=== PATIENT | female | born 1940 | race Caucasian/White ===

== ENCOUNTER → 2019-02-23 08:49 | Outpatient (BNVA) | payer MEDICARE, BC, SELFPAY | PROVIDERS: PCP Nurse Practitioner Family; Referring Provider Family Medicine; Visit Provider Orthopaedic Surgery | DX: M25.512 Pain in left shoulder (principal) | CPT/HCPCS: 20610; 99212; 99213; J1040 ==

== ENCOUNTER 2019-04-06 09:57 | Outpatient (CLI) | payer MEDICARE, BC, SELFPAY ==
--- NOTE | 2019-04-06 09:52 | DI.RAD_ITS ---
SYMPTOMS/DIAGNOSIS: PAIN RIGHT KNEE: AP and lateral projections of the right knee. The patient is status post TKA. The prosthesis in good position, surrounding bone intact with no appreciable interval change when compared with the prior study of 10/20/17.
== END 2019-04-06 10:17 ==
PROVIDERS: PCP Nurse Practitioner Family; Referring Provider Nurse Practitioner Family; Visit Provider Orthopaedic Surgery
DX: M25.561 Pain in right knee (principal); Z96.651 Presence of right artificial knee joint; M25.512 Pain in left shoulder
CPT/HCPCS: 99211; 99213; 73560

== ENCOUNTER → 2019-05-18 08:54 | Outpatient (BNVA) | payer MEDICARE, BC, SELFPAY | PROVIDERS: Referring Provider Nurse Practitioner Family; Visit Provider Orthopaedic Surgery | DX: M25.511 Pain in right shoulder (principal); M25.561 Pain in right knee; M70.51 Other bursitis of knee, right knee | CPT/HCPCS: 99213 ==

== ENCOUNTER 2020-04-02 12:29 | Outpatient (CLI) | payer MEDICARE, BC, SELFPAY ==
--- NOTE | 2020-04-02 12:00 | DI.RAD_ITS ---
EXAM: XR KNEE RT 2V AP,LAT CLINICAL HISTORY: pain TECHNIQUE: 2D digital imaging was performed. COMPARISON: CR XR knee RT 2V AP,lat from 04/06/2019 FINDINGS: There has been no change in the alignment of the a total knee prosthesis or surrounding bone. IMPRESSION: Stable appearance of the right knee.
== END 2020-04-02 12:49 ==
PROVIDERS: Visit Provider Orthopaedic Surgery
DX: M25.561 Pain in right knee (principal); Z96.651 Presence of right artificial knee joint
CPT/HCPCS: 20610; 99214; 73560; J1040

== ENCOUNTER → 2020-09-25 10:48 | Outpatient (BNVA) | payer MEDICARE, BC, SELFPAY | PROVIDERS: PCP Nurse Practitioner Family; Visit Provider Orthopaedic Surgery | DX: T84.84XD Pain due to internal orthopedic prosthetic devices, implants and grafts, subsequent encounter (principal); Z96.651 Presence of right artificial knee joint | CPT/HCPCS: 99213 ==

== ENCOUNTER 2020-10-04 02:22 | Outpatient (CLI) | payer MEDICARE, BC, SELFPAY ==
--- NOTE | 2020-10-04 07:30 | DI.NM_ITS ---
EXAM: NM BONE SCAN 3 PHASE CLINICAL HISTORY: Painful R TKA, T84XA, Z96.651. COMPARISON: CR RIGHT KNEE 3 VIEWS from 10/20/2017 CR XR KNEE RT 2V AP,LAT from 04/02/2020 EXAMINATION: 25.0 millicuries of technetium 99 labeled methylene diphosphonate was injected of intra venously with 3 phase imaging of the knee. Flow images and immediate images show moderately increase d uptake in the region of the right knee. Delayed images show significantly increased uptake at the proximal tibia associated with the tibial component the patient's total knee joint replacement. Find ings are more intense than typically seen post TKR, the findings may represent loosening in the appro priate clinical setting. Infectious process not excluded on the basis of this examination. Note is also made of increased uptake associated with the right hip, this may be on a degenerative ba sis, however other etiologies are not excluded and correlation with radiographs of the right hip are suggested. Note is also made mildly increased uptake at multiple sites near the thoracolumbar junction consisten t with the patient's known scoliosis. FINDINGS: Slightly greater than expected increased uptake associated with the tibial component of the right tot al knee joint replacement, findings could represent loosening or stress reaction, infection not exclu ded on the basis of this examination. Mildly increased uptake right hip, radiographs requested for correlation for suspected degenerative c hanges. IMPRESSION:
== END 2020-10-04 02:42 ==
PROVIDERS: PCP Nurse Practitioner Family; Visit Provider Physician Assistant
DX: T84.84XA Pain due to internal orthopedic prosthetic devices, implants and grafts, initial encounter (principal); Z96.651 Presence of right artificial knee joint
CPT/HCPCS: 78315

== ENCOUNTER → 2020-10-09 11:23 | Outpatient (BNVA) | payer MEDICARE, BC, SELFPAY | PROVIDERS: PCP Nurse Practitioner Family; Referring Provider Nurse Practitioner Family; Visit Provider Orthopaedic Surgery | DX: T84.84XD Pain due to internal orthopedic prosthetic devices, implants and grafts, subsequent encounter (principal); Z96.651 Presence of right artificial knee joint | CPT/HCPCS: 20610; 99213 ==

== ENCOUNTER → 2020-10-24 10:27 | Outpatient (BNVA) | payer MEDICARE, BC, SELFPAY | PROVIDERS: PCP Nurse Practitioner Family; Referring Provider Nurse Practitioner Family; Visit Provider Student in an Organized Health Care Education/Training Program | DX: T84.84XD Pain due to internal orthopedic prosthetic devices, implants and grafts, subsequent encounter (principal); T84.032D Mechanical loosening of internal right knee prosthetic joint, subsequent encounter; Z96.651 Presence of right artificial knee joint | CPT/HCPCS: 99215 ==

== ENCOUNTER 2020-11-04 03:37 | Outpatient (CLI) | payer MEDICARE, BC, SELFPAY ==
[2020-11-04 10:53] LABS: HCT 37.2 % (36.0-46.0); HGB 11.7 g/dL (11.2-15.7); MCHC 31.5 % (32.0-36.0); MCV 98.7 fL (80-95); MPV 10.6 fL (8.0-11.0); Platelet Count 255 10^3/uL (130-400); RBC 3.77 10^6/uL (3.93-5.22); RDW 11.9 % (11.7-14.6); RDW-SD 43.4 fL; WBC 4.64 10^3/uL (4.4-10.8)
[2020-11-04 11:27] LABS: Anion Gap 7.5 mmol/L (3-11); BUN 25 mg/dL (7-18); C-Reactive Protein 0.07 mg/dL (0.0-0.3); CO2 29.5 mmol/L (21.0-32.0); CREATININE 1.13 mg/dL (0.55-1.02); Calcium 9.2 mg/dL (8.5-10.1); Chloride 105 mmol/L (98-107); Estimated GFR 46.33 (mL/min/1.73m2); Glucose 97 mg/dL (74-106); Potassium 3.6 mmol/L (3.5-5.1); Sodium 142 mmol/L (136-145)
[2020-11-04 11:49] LABS: ESR 14 mm/hr (0-30)
[2020-11-05 16:50] LABS: COVID-19 RT-PCR UVMMC Result Negative (Negative)
== END 2020-11-04 03:57 ==
PROVIDERS: PCP Nurse Practitioner Family; Visit Provider Student in an Organized Health Care Education/Training Program
DX: T84.84XA Pain due to internal orthopedic prosthetic devices, implants and grafts, initial encounter (principal); Z96.651 Presence of right artificial knee joint; Z11.59 Encounter for screening for other viral diseases; Z01.818 Encounter for other preprocedural examination; Z01.812 Encounter for preprocedural laboratory examination
CPT/HCPCS: 36415; 80048; 85027; 85652; U0003; 86140

== ENCOUNTER → 2020-11-06 07:59 | Outpatient (BNVA) | payer MEDICARE, BC, SELFPAY | PROVIDERS: PCP Nurse Practitioner Family; Referring Provider Nurse Practitioner Family; Visit Provider Student in an Organized Health Care Education/Training Program | DX: R69 Illness, unspecified (principal) ==

== ENCOUNTER 2020-11-06 08:09 | Inpatient (IN) | payer MEDICARE, BC, SELFPAY ==
[2020-11-06] VITALS (13 sets, daily range): BP systolic 114–145; BP diastolic 60–90; PULSE 41–98; RESP 15–21; TEMP 35.5–36.4; O2SAT 95–100
[2020-11-06] MEDS: Lactated Ringers 1,000 ML 30 ML IV ×2 (09:13→23:07)
[2020-11-06 09:18] LABS: INR 1.4 (0.9-1.1); Prothrombin Time 13.8 sec (9.3-11.0)
--- NOTE | 2020-11-06 09:25 | W.PM.DS.N ---
Documented by User: Celia Zuniga 11/06/20 09:42 DS: Diagnosis Discharge Diagnosis (1) Painful total knee replacement, right: Status: Acute (2) Loosening of prosthesis of right total knee replacement: Status: Acute Discharge Plan Disposition Patient Disposition: HOME Condition: Good Discharge Details Reason For Visit: Loosening of prosthesis of right TKA Admit Date/Time: 11/06/20 08:09 Admit Provider: David Dawn Attending Provider: David Dawn Primary Care Provider: Florence Quan Hospital Course Hospital Course: Patient was admitted to the medical/surgical floor following the procedure. The surgery was tolerated well without any notable medical, surgical, or anesthetic complications. Mobilization began post-operatively. They were voiding spontaneously. Vitals were stable. Physical therapy worked with the patient and was cleared for discharge home with home health services. No acute medical issues. Pain was controlled on oral regimen. Home Meds and New Rx's Prescriptions: New celecoxib [Celebrex] 200 mg capsule 200 mg PO BID Qty: 30 RF: 0 acetaminophen 500 mg tablet 500 mg PO Q6H PRN (Reason: pain) Qty: 60 RF: 2 docusate sodium [Colace] 100 mg capsule 100 mg PO BID Qty: 30 RF: 0 oxycodone 5 mg tablet 5 mg PO Q4H PRN (Reason: severe post-operative pain) Qty: 18 RF: 0 gabapentin 300 mg capsule 300 mg PO QHS Qty: 14 RF: 0 Continued furosemide 40 mg tablet 40 mg PO DAILY RF: 0 atorvastatin [Lipitor] 20 MG tablet 10 mg PO HS Qty: 1 RF: 0 meclizine 25 MG tablet 25 mg PO BID Qty: 1 RF: 0 omeprazole magnesium [Prilosec OTC] 20 MG tablet,delayed release (DR/EC) 20 mg PO BID Qty: 1 RF: 0 CENTRUM SILVER TABLET 1 EACH tablet 1 ea PO DAILY Qty: 1 RF: 0 CITRACAL + D CAPLET 1 EACH tablet 1 ea PO HS Qty: 1 RF: 0 TRIAMCINOLONE ACETONIDE 100 GM cream 100 gm Miscellaneous DAILY PRNQty: 1 RF: 0 diphenhydramine HCl [Benadryl Allergy] 25 MG tablet 25 mg PO PRN PRNRF: 0 warfarin 5 MG tablet 5 mg PO HS RF: 0 oxybutynin chloride 5 MG tablet extended release 24hr 1 tab PO DAILY RF: 0 Excedrin Migraine 1 EACH tablet 1 ea PO PRN PRN (Reason: Pain) RF: 0 estradiol [Vagifem] 10 MCG tablet 10 mcg VG .WEDNESDAY AND WEDNESDAY RF: 0 penicillin V potassium 250 mg tablet 250 mg PO DAILY RF: 0 Discontinued hydrocodone-acetaminophen 7.5-325 mg tablet 1 tab PO Q6H PRNRF: 0 Discharge Instructions Additional Instructions: Total Knee Revision Discharge Instructions Activity: The most important activity is to walk. You should try to take short walks a few times a day. It is important that when resting you work on keeping the knee straight. Avoid putting a pillow behind the knee as this will encourage flexion. Work on range of motion exercises as provided by Physical Therapy. - Start outpatient physical therapy within 2 weeks. - You should wear the MAYLIN hose on both legs for 2 weeks. Dressing: Keep the surgical dressing in place for at least one week. After the first week it may be removed and replace with light gauze and tape or nothing. It may get wet after 3 days but avoid soaking the dressing. If it gets wet, just lightly pat dry. Medications: - You should take Tylenol and anti-inflammatory Celebrex as your primary pain control medications. If the Celebrex is too expensive or not covered, please call the office for another alternative (Advil/Ibuprofen or Naproxen/Aleve) - You have been prescribed a stronger pain medication Oxycodone for breakthrough pain, take as needed as prescribed. - You should continue your stomach acid reduction agent Omeprazole to help reduce stomach acid and reflux. - You will continuing taking your regular dose of warfarin for DVT prevention. Your INR will be checked hy home health services - If you have constipation you should take Colace (which was prescribed) or Miralax (which you may purchase [id number]). It takes most people 3-4 days to have a bowel movement. Follow-up: 2 weeks If you have any acute concerns or questions, please do not hesitate to contact the office at [phone]. You may contact Dr. Dawn with any questions after hours through the hospital at [phone] or on his cell phone at [phone]. 1. Encounter Date and Reason I certify that Carla LAL was seen by David Dawn MD on 11/07/20 and that I had a akjh-ye-aorw encounter with this patient that meets the physician face to face encounter requirements. 2. Clinical Findings Supporting Skilled Need and Homebound Status I certify that home health services are medically necessary, include either intermittent long term and/or physical/speech therapy, and that this patient is homebound in that absences from the home require considerable and taxing effort and are infrequent or of short duration, or are attributable to the need to receive medical care. [X] (a) Attached documentation from encounter provides clinical findings supporting skilled need and homebound status (including what assistance patient requires to leave the home). The encounter with the patient was in whole, or in part, for the following medical condition, which is the primary reason for home health care: Loosening of prosthesis of right TKA Half-Way: Physical Therapy: Radha would benefit from home health physical therapy to assist with mobilization and regaining strength and motion about the right knee. She is s/p revision of the tibial component of the right knee. She has no restrictions but should focus on range of motion of the knee with light strengthening and ambulatory training. Recommend a walker at al times for mobilization. INR checks should also be drawn twice a week, starting on Wednesday11/11/19 or sooner if possible. Speech Therapy: Homebound: Radha is unable to leave her home unassisted. She has significant weakness and gait dysfunction. 3. Certification and Authentication I certify that I composed the above information based on my clinical judgement relating to this patient's medical condition and, if applicable, clinical findings communicated to me by the NPP or inpatient physician who performed the Home Health Referral. All further orders will be obtained through Dr. Dawn Referrals: David Dawn MD [ [facility] STAFF PHYSICIAN] - Activity:: Activity as Tolerated Equipment/Supplies:: Walker Diet:: As Tolerated Discharge Orders Discharge Orders: Discharge Order (Routine); Ordered 11/07/20 Ordered By: David Dawn DS: Data Vitals/I&O Vitals and I&O: Vital Signs Temperature 36.2 C L 11/06/20 09:17 Pulse 41 L 11/06/20 09:17 Pulse Rhythm Irregular 11/06/20 09:17 Respiratory Rate 18 11/06/20 09:17 Respiratory Effort 11/06/20 08:47 Respiratory Depth Normal 11/06/20 09:17 Blood Pressure 114/61 11/06/20 09:17 Pulse Oximetry 97 11/06/20 09:17 Oxygen Delivery Method Room Air 11/06/20 09:17 Oxygen Flow Rate 0 11/06/20 09:17 Pain Level 8 11/06/20 09:17 Intake & Output 11/05/20 11/05/20 11/06/20 11:59 23:59 11:59 Weight 61.2 kg Data Completed and Pending Labs on day of discharge: Labs from last 24 hours 11/06/20 09:00 PT Pending INR Pending [facility] Medical History Arthritis Back Pain, Chronic Bradycardia Cardiac Myxoma Erythema nodosum GERD (gastroesophageal reflux disease) hypercholesterolemia Hyperlipidemia Meniere's disease Permanent atrial fibrillation Pulmonary HTN Moderate [place] [facility] [place] Renal Insufficiency Surgical History (Updated 11/06/20 @ 09:21 by Mona Anderson) History of History of esophagogastroduodenoscopy (EGD) History of hysterectomy History of left knee replacement History of right knee joint replacement Hx of appendectomy Hx of basal cell carcinoma excision Hx of bilateral cataract extraction Hx of cholecystectomy Hx of colonoscopy Hx of hammer toe correction Hx of heart surgery cardiac myxoma -40 years ago Hx of shoulder surgery Social History Smoking/Tobacco Use Status: Former Tobacco Use Smoking risk assessment performed?: Yes Drug use: Never Current gender identity: female Do you feel safe at home: Yes Do you feel safe in your relationship?: Yes Documented by User: David Dawn MD 11/07/20 14:01 Date of service: 11/07/20 Time of Service: 13:55 Discharge Plan Disposition Patient Disposition: HOME Condition: Good Discharge Details Reason For Visit: Loosening of prosthesis of right TKA Admit Date/Time: 11/06/20 08:09 Admit Provider: David Dawn Attending Provider: David Dawn Primary Care Provider: Florence Quan [place] Hospital Course Hospital Course: Patient was admitted to the medical/surgical floor following the procedure. The surgery was tolerated well without any notable medical, surgical, or anesthetic complications. Mobilization began post-operatively. They were voiding spontaneously. Vitals were stable. Physical therapy worked with the patient and was cleared for discharge home with home health services. No acute medical issues. Pain was controlled on oral regimen. Home Meds and New Rx's Prescriptions: New celecoxib [Celebrex] 200 mg capsule 200 mg PO BID Qty: 30 RF: 0 acetaminophen 500 mg tablet 500 mg PO Q6H PRN (Reason: pain) Qty: 60 RF: 2 docusate sodium [Colace] 100 mg capsule 100 mg PO BID Qty: 30 RF: 0 oxycodone 5 mg tablet 5 mg PO Q4H PRN (Reason: severe post-operative pain) Qty: 18 RF: 0 gabapentin 300 mg capsule 300 mg PO QHS Qty: 14 RF: 0 Continued furosemide 40 mg tablet 40 mg PO DAILY RF: 0 atorvastatin [Lipitor] 20 MG tablet 10 mg PO HS Qty: 1 RF: 0 meclizine 25 MG tablet 25 mg PO BID Qty: 1 RF: 0 omeprazole magnesium [Prilosec OTC] 20 MG tablet,delayed release (DR/EC) 20 mg PO BID Qty: 1 RF: 0 CENTRUM SILVER TABLET 1 EACH tablet 1 ea PO DAILY Qty: 1 RF: 0 CITRACAL + D CAPLET 1 EACH tablet 1 ea PO HS Qty: 1 RF: 0 TRIAMCINOLONE ACETONIDE 100 GM cream 100 gm Miscellaneous DAILY PRNQty: 1 RF: 0 diphenhydramine HCl [Benadryl Allergy] 25 MG tablet 25 mg PO PRN PRNRF: 0 warfarin 5 MG tablet 5 mg PO HS RF: 0 oxybutynin chloride 5 MG tablet extended release 24hr 1 tab PO DAILY RF: 0 Excedrin Migraine 1 EACH tablet 1 ea PO PRN PRN (Reason: Pain) RF: 0 estradiol [Vagifem] 10 MCG tablet 10 mcg VG .WEDNESDAY AND THURSDAY RF: 0 penicillin V potassium 250 mg tablet 250 mg PO DAILY RF: 0 Discontinued hydrocodone-acetaminophen 7.5-325 mg tablet 1 tab PO Q6H PRNRF: 0 Discharge Instructions Additional Instructions: Total Knee Revision Discharge Instructions Activity: The most important activity is to walk. You should try to take short walks a few times a day. It is important that when resting you work on keeping the knee straight. Avoid putting a pillow behind the knee as this will encourage flexion. Work on range of motion exercises as provided by Physical Therapy. - Start outpatient physical therapy within 2 weeks. - You should wear the MAYLIN hose on both legs for 2 weeks. Dressing: Keep the surgical dressing in place for at least one week. After the first week it may be removed and replace with light gauze and tape or nothing. It may get wet after 3 days but avoid soaking the dressing. If it gets wet, just lightly pat dry. Medications: - You should take Tylenol and anti-inflammatory Celebrex as your primary pain control medications. If the Celebrex is too expensive or not covered, please call the office for another alternative (Advil/Ibuprofen or Naproxen/Aleve) - You have been prescribed a stronger pain medication Oxycodone for breakthrough pain, take as needed as prescribed. - You should continue your stomach acid reduction agent Omeprazole to help reduce stomach acid and reflux. - You will continuing taking your regular dose of warfarin for DVT prevention. Your INR will be checked hy home health services - If you have constipation you should take Colace (which was prescribed) or Miralax (which you may purchase [id number]). It takes most people 3-4 days to have a bowel movement. Follow-up: 2 weeks If you have any acute concerns or questions, please do not hesitate to contact the office at [phone]. You may contact Dr. Dawn with any questions after hours through the hospital at [phone] or on his cell phone at [phone]. 1. Encounter Date and Reason I certify that Carla LAL was seen by David Dawn MD on 11/07/20 and that I had a itef-ef-uacw encounter with this patient that meets the physician face to face encounter requirements. 2. Clinical Findings Supporting Skilled Need and Homebound Status I certify that home health services are medically necessary, include either intermittent long term and/or physical/speech therapy, and that this patient is homebound in that absences from the home require considerable and taxing effort and are infrequent or of short duration, or are attributable to the need to receive medical care. [X] (a) Attached documentation from encounter provides clinical findings supporting skilled need and homebound status (including what assistance patient requires to leave the home). The encounter with the patient was in whole, or in part, for the following medical condition, which is the primary reason for home health care: Loosening of prosthesis of right TKA Half-Way: Physical Therapy: Radha would benefit from home health physical therapy to assist with mobilization and regaining strength and motion about the right knee. She is s/p revision of the tibial component of the right knee. She has no restrictions but should focus on range of motion of the knee with light strengthening and ambulatory training. Recommend a walker at al times for mobilization. INR checks should also be drawn twice a week, starting on Wednesday11/11/19 or sooner if possible. Speech Therapy: Homebound: Radha is unable to leave her home unassisted. She has significant weakness and gait dysfunction. 3. Certification and Authentication I certify that I composed the above information based on my clinical judgement relating to this patient's medical condition and, if applicable, clinical findings communicated to me by the NPP or inpatient physician who performed the Home Health Referral. All further orders will be obtained through Dr. Dawn Referrals: David Dawn MD [ [facility] STAFF PHYSICIAN] - Activity:: Activity as Tolerated Equipment/Supplies:: Walker Diet:: As Tolerated Discharge Orders Discharge Orders: Discharge Order (Routine); Ordered 11/07/20 Ordered By: David Dawn DS: Summary Status at Discharge Functional status at discharge: uses cane/walker Overall status at discharge: patient is progressing back to baseline Mental Status: mental status grossly normal Speech and Movement: speech and movement normal Mood: congruent mood Affect: normal affect Exam Psych Mental Status: mental status grossly normal Speech and Movement: speech and movement normal Mood: congruent mood Affect: normal affect [facility] Medical History Arthritis Back Pain, Chronic Bradycardia Cardiac Myxoma Erythema nodosum GERD (gastroesophageal reflux disease) hypercholesterolemia Hyperlipidemia Meniere's disease Permanent atrial fibrillation Pulmonary HTN Moderate [place] [facility] [place] Renal Insufficiency Surgical History (Updated 11/06/20 @ 09:21 by Mona Anderson) History of History of esophagogastroduodenoscopy (EGD) History of hysterectomy History of left knee replacement History of right knee joint replacement Hx of appendectomy Hx of basal cell carcinoma excision Hx of bilateral cataract extraction Hx of cholecystectomy Hx of colonoscopy Hx of hammer toe correction Hx of heart surgery cardiac myxoma -40 years ago Hx of shoulder surgery Social History Smoking/Tobacco Use Status: Former Tobacco Use Smoking risk assessment performed?: Yes Drug use: Never Current gender identity: female Do you feel safe at home: Yes Do you feel safe in your relationship?: Yes
[2020-11-06] MEDS: Acetaminophen 500 MG TAB 1000 MG PO ×2 (09:39→21:02)
[2020-11-06] MEDS: Gabapentin 300 MG CAP PO ×2 (09:42→21:19)
--- NOTE | 2020-11-06 10:37 | ANES_ITS ---
Date of service: 11/06/20 Time of Service: 10:27 Anesthesia Note Report Anesthesia Note: Regional Anesthesia note: Performed by Olaf Flores CRNA Block note for femoral nerve block in the adductor canal. Patient brought to PACU bay 3 and standard physiological monitors applied. Patient was stable to her baseline of bradycardic atrial fibrillation, blood pressure 114/73, SPO2 100% on RA with RR of 16. Timeout performed at 0927 with Linda Luna RN. Patient name, , sidedness, marked status, and procedures verified. Patient positioned with right leg, froglegged out and site exposed. Patient awake throughout procedure not sedation used. CHG applied to clean site. Sterile gloves, US cover applied. All members of team capped and masked. Structures visualized: Nerve, artery, vein, muscle, and femur. Patient does report discomfort from vericose veins running on the medial thigh: these were avoided. US image obtained, 15 ml of 0.25% plain bupivacaine deposited around nerve. Patient reported pressure and some pain, at site, on second reposition for second 5 ml reported pain down leg, needle repositioned prior to injection with disappearance of the reported pain, injection continued. 3.5 cm Pajunk needle under ultrasound guidance throughout. Images saved and sent to seismic observer. VS stable patient left in care of OVEREDGE MACHINE OPERATORJORGE ALBERTO Carlton after final report given. Awaiting OR to be ready to proceed with case. Patient denied questions or concerns.
[2020-11-06] MEDS: ceFAZolin 2 GM/50 ML BAG IVPB (12:06)
[2020-11-06] MEDS: Bupivacaine 0.25% Pres-Free 30 ML VIAL (14:10)
[2020-11-06] MEDS: Ketorolac 30 MG/ML VIAL (14:10)
[2020-11-06] MEDS: Normal Saline 20 ML VIAL (14:10)
--- NOTE | 2020-11-06 15:15 | DI.RAD_ITS ---
EXAM: XR KNEE RT 2V AP,LAT CLINICAL HISTORY: s/p revision of tibial component TECHNIQUE: COMPARISON: CR XR KNEE RT 2V AP,LAT from 04/02/2020 FINDINGS: Three views were obtained. There has been an apparent revision of the tibial component of a total kn ee prosthesis. The new tibial component appears well seated in the tibia. No other significant palma ge. IMPRESSION: RADIATION DOSE DELIVERED: Total DLP
[2020-11-06] MEDS: ceFAZolin 1 GM/50 ML BAG IVPB (19:13)
[2020-11-06] MEDS: Meclizine 25 MG TAB PO (21:01)
[2020-11-06] MEDS: Atorvastatin 10 MG TAB PO (21:03)
[2020-11-06] MEDS: Omeprazole 20 MG CAPCR PO (21:03)
[2020-11-06] MEDS: Celecoxib 200 MG CAP PO (21:03)
[2020-11-06] MEDS: Warfarin 5 MG TAB PO (21:04)
--- NOTE | 2020-11-06 21:29 | ROE_ITS ---
Date of service: 11/06/20 Time of Service: 15:02 Operative Note Operative Note DATE OF PROCEDURE: 11/06/20 PRE-OP DIAGNOSIS: Loosening of right knee replacement POST-OP DIAGNOSIS: same Erosive synovitis PROCEDURE: Revision of tibial component, bone grafting of femoral cysts SURGEON: David Dawn SHOPPING CENTRE MANAGER: Celia Zuniga ANESTHESIA: GETA and regional ESTIMATED BLOOD LOSS: 200 PATHOLOGY: none sent TOURNIQUET TIME: 77 COMPLICATIONS: None Patient was transported to: PACU Patient's condition: stable Implants: Partenderuy Sigma Revision Knee System: - [id number] Cementless Stem - 29mm Sleeve - Size 2 Rotating Platform Reviision Tray - 15mm Tibial Tray - 2.5 x 17.5mm PS/RP Polyethylene Indications: I have seen Radha in clinic for symptoms of RIGHT knee pain which was confirmed to be a loose knee component, confirmed with radiographic findings. Radha has exhausted nonoperative methods and was having significant limitations in daily function and desired better function and less pain. I discussed the technical details of a knee replacement. I explained the risks of the procedure to include, but not limited to, bleeding, infection, pain, stiffness, fracture, damage to nerves and vessels, damage to muscles and tendons, loosening, need for repeat procedure, blood clot and cardiopulmonary demise. Despite these risks, Radha elected to proceed. Findings: There was a white villonodular synovitis, consisent with polyethylene debris induced, throughtout the knee. The tibia was grossly loose toggling within the tibia with notable anterior slope. There were cysts behind the medial and lateral extents of the distal femur but they didn't involve the distal femoral cortex. The femur, while it had some undermining, was not able to be loosened and was thus left in place. The tibia was removed without difficulty and with no attached cement. There was notable bone loss anteriorly as well as a hole in the posterior tibia where the keel was resting. A revision tibial component with a stem and sleeve was inserted. Stability was obtained with the posteriorly stabilized component. Procedure Description: Radha was greeted in the preoperative holding area where the correct side was identified and marked. The consent was reviewed with the patient and signed. The history and physical was updated. All questions were answered. Preoperative INR was obtained at 1.4. Preoperative mediacations were administered: Acetaminophen 1000mg, Celebrex 400mg, and Gabapentin 300mg. An adductor canal block was then administered by the anesthesia team in the PACU. Radha was taken back to the operating room. A general anesthestic was then administered. The patient was placed into the supine position on the operating room table. A nonsterile tourniquet was placed high onto the leg. Posts were placed for positioning during the procedure. All bony prominences were well padded. Prophylactic antibiotics in the form of Cefazolin were administered. 1g of Tranxemic Acid was given intravenously within 30 minutes of incision. The right leg was then prepped with Chloraprep and draped in a standard fashion with impervious stockinette. A second prep with Chloraprep was performed prior to application of Iodine impregnated skin protection. A timeout to confirm correct identity, side and site, procedure, allergies, anesthesia, and medical concerns was performed. With the knee in some flexion, a midline incision was made overlying the knee through the previous scar. Full thickness skin flaps were raised once the extensor mechanism was encountered. These were raised medially and laterally. Any bleeding was controlled with electrocautery. Once the extensor mechanism was fully exposed, a medial parapatellar arthrotomy was performed in a flexed position. All bleeding from the arthrotomy and the geniculate arteries was coagulated. There is significant villonodular synovitis, white-colored with small particulate, suggestive of polyethylene debris synovitis. A near complete synovectomy was performed using 2 Allises on the capsular and tendinous tissue and 2 Nasrin's on the synovial lining. The synovium was removed in this fashion. I also used a rongeur to remove any excess synovium. I made sure to identify the interface of the femur and the femoral component. There is some undermining of the component itself anteriorly although there was still intact interface between the remaining bone, cement, and implant. There is also notable synovitis seen over the medial lateral femurs with erosion into the distal femurs leaving a gap or a cyst between the distal medial and distal lateral femoral cortex and the undersurface of the distal femoral component. This was not full-thickness through the femoral condyle itself. The tibial component was grossly loose. It was noted to be toggling within the tibia rotating into increasing anterior slope. There is a small shell of bone laterally and anteriorly as well as medially but otherwise significant loss of bone was seen anteriorly. A medial subperiosteal peel was performed with electrocautery to the midcoronal plane. I left the bony shells laterally and medially since they were still attached the remainder of the tibia and elevating the tissues off of these bony fragments. I used electrocautery to expose the entire periphery of the tibia. I dissected some the tissue from underneath the patellar tendon and laterally to expose the lateral aspect of the tibial plateau. There is a notable ooze of all the soft tissue surrounding the knee and therefore inflated the tourniquet to 300 mmHg where it stayed for 77 minutes. A blunt Hohmann was placed on the tibia to sublux the tibia forward. At this moment became obvious that it was quite soft. The tibial component was able to be removed easily by hand. There was an evident that the blunt Hohmann was actually penetrating through the posterior tibial cortex. It was repositioned so it was resting in spelling. Debridement was performed with a rongeur to remove any loose pieces of cement as well as synovium. I then used a small straight osteotome to create cracks into the cement in a cruciate pattern. This was performed over the tibial surface for whatever cement was remaining. There was a large defect in the posterior tibia with only a very small bridge of bone remaining superiorly. This defect in the tibia was where the keel was resting and likely toggling [id number]. There was a rim of soft tissue around the periphery of the tibia which was left in place and not debrided. I was able to remove the remainder of the cement with minimal bone attachment. This was then thoroughly irrigated with the pulse lavage. There is no remnant cement. Unfortunately, there is very little bone anteriorly. I then used a blunt canal reamer to find the canal. This is able to be done quite easily diverging from the posteriorly angulated tract prepared by the tibia. Is able to ream up to a size 12 with good cortical engagement. This in position I then reamed and broached for the 29 mm sleeve. This was sent to the level equal to the anterior aspect knowing that this would take off a large portion from the posterior tibia. I then cut the surface of the tibia off of the top of the sleeve. This had built in slope. While protecting the soft tissues, I cut the tibia surface. The posterior aspect of the tibia was unable to be cut till after the broach handle was removed. The sleeve was removed and the cut was completed posteriorly both of the cell and with the osteotome. There is now a significant surface of the tibia to rest the tibial component against. This did, unfortunately, remove quite a bit of bone posteriorly given the defect anteriorly. I then placed the tibial trial into position and tried various tightness polyethylenes. Unfortunately, a 25 mm polyethylene still not provide quite enough support and it was somewhat loose in extension as well as in flexion. Therefore, I trialed it with a tibial tray and a 17.5 mm polyethylene was provided much better security with 0 to 1 mm gapping medially with a valgus stress in 2 to 3 mm gapping with varus stress. It was tight in flexion to about 115 degrees, although her preoperative motion was limited 90 degrees of flexion. The trial components were removed. The final components, except for the polyethylene were opened on the back table. The periosteal and capsular tissues, especially posteriorly, around the knee were then systematically injected with a periarticular cocktail consisting of 50cc 0.25% Marcaine, 30mg Ketorolac, 20cc of Exparal and 50cc of injectable saline. The knee was thoroughly irrigated with a pulse lavage and dried. Irrisept chlorhexadine solution was also irrigated through the knee and allowed to sit for 3 minutes. The cyst seen in the medial and lateral condyles of the distal femur were fully debrided with a curette and scarified. There was still substantial contact b etween the implant, cement, and underlying bone. However, given this defect and the bone surrounding it, I placed multiple cancellous bone into the defect. This was packed into the defect fully filling up the space completely. On the back table, with the implants opened, the cement was mixed. 1 batch of antibiotic laden cement was prepared with vacuum assistance. The sleeve was manually placed and lightly pushed into position. After the cement was ready a small amount was placed on to the back side of the tibial component and a small amount was placed onto the cut surface of the tibia avoiding any contact with the porous coatings of the sleeve and stem. The tibial component was then inserted into the cut surface and impacted into position. Excess cement was removed. The knee was then brought into extension with a 17.5mm polyethylene and it was allowed to sit in this position until the cement had cured. The knee was taken through range of motion it was felt to be stable in extension and in flexion. Range of motion was approximately 0 to 120 degrees. There did seem to be some increasing tightness in flexion when compared to extension although extension was quite full with 0 to 1 mm of play with valgus stress and about 3 mm of play with varus stress. The trial polyethylene was removed and the 2.5 x 17.5 mm rotating platform and posterior stabilized implant was then in serted. The tourniquet was then released. There is some ooze within the knee but no vigorous bleeding appreciated. The capsule was then reapproximated with a No. 1 Vicryl at multiple locations. The capsule was finally closed with a No. 2 Stratafix, barbed suture. The second dosing of 1g TXA was started. Deep tissues were then reapproximated with 0 Vicryl and 2-0 Vicryl. The skin was closed with a running 3-0 Monocryl in a subcuticular fashion. This was reinforced with skin glue. A Mepilex silver dressing was applied along with a [id number] CAROLINA wrap. A CryoCuff was applied. Radha was transferred to the hospital bed without difficulty an suffering no apparent complication. Radha has a good prognosis. Physical therapy will start today and without restrictions, weight-bearing as tolerated. Coumadin will resume for DVT prophylaxis.
[2020-11-07] VITALS (8 sets, daily range): BP systolic 86–108; BP diastolic 41–65; PULSE 56–73; RESP 17–20; TEMP 36.2–37.1; O2SAT 95–98
[2020-11-07] MEDS: oxyCODONE 5 MG TAB PO ×4 (00:22→15:59)
[2020-11-07] MEDS: ceFAZolin 1 GM/50 ML BAG IVPB ×2 (03:47→11:16)
[2020-11-07 06:46] LABS: HGB 9.6 g/dL (11.2-15.7); MCH 32.1 pg (27.0-33.0); MCHC 33.1 % (32.0-36.0); MPV 11.2 fL (8.0-11.0); RBC 2.99 10^6/uL (3.93-5.22); RDW 11.8 % (11.7-14.6); RDW-SD 41.6 fL; WBC 12.32 10^3/uL (4.4-10.8)
[2020-11-07 06:52] LABS: Anion Gap 6.5 mmol/L (3-11); CO2 26.5 mmol/L (21.0-32.0); CREATININE 1.17 mg/dL (0.55-1.02); Calcium 8.6 mg/dL (8.5-10.1); Estimated GFR 44.51 (mL/min/1.73m2); Potassium 3.8 mmol/L (3.5-5.1)
[2020-11-07 07:01] LABS: INR 1.3 (0.9-1.1); Prothrombin Time 13.4 sec (9.3-11.0)
[2020-11-07] MEDS: Acetaminophen 500 MG TAB 1000 MG PO ×2 (08:40→12:51)
[2020-11-07] MEDS: Meclizine 25 MG TAB PO (08:41)
[2020-11-07] MEDS: Oxybutynin-CR 5 MG TABCR PO (08:41)
[2020-11-07] MEDS: Celecoxib 200 MG CAP PO (08:41)
[2020-11-07] MEDS: Furosemide 40 MG TAB PO (08:43)
[2020-11-07] MEDS: Enoxaparin 30 MG/0.3 ML SYR SC (08:44)
[2020-11-07] MEDS: Normal Saline Flush 10 ML SYR IV (08:45)
[2020-11-07] MEDS: Omeprazole 20 MG CAPCR PO (08:48)
--- NOTE | 2020-11-07 10:12 | PT.INIE ---
Date of service: 11/07/20 Time of Service: 10:12 PT Notes Visit Reasons: Loosening of prosthesis of right TKA Physical Therapy Inpatient Initial Evaluation Date: 11/07/2020 Referring Doctor: BETZY Shelton PT Orders: PT CONSULT: Status post Ortho surgery Precautions: Fall. Standard. WBAT on right LE. 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 PMHX: Medicall History Arthritis Back Pain, Chronic Cardiac Myxoma Erythema nodosum hypercholesterolemia Meniere's disease Renal Insufficiency . Social History/Home Situation: Lives with Rishabh in a private home with 2 steps to enter with one rail. Uses 20-30 mmHg compression garment prior to surgery due to primary lymphedema affecting the left LE. Independent with mobility ADL performance prior onset of mobility limitations resulting from prosthetic loosening. Equipment Owned/DME: Front-wheeled walker Subjective: Pleasant and cooperative. Indicated that it is her L knee that gives her more problem now than her R due to her chronic swelling. Agreeable to PT donning her left leg compression garment and shoes with R shoe insert on prior to ambulation activity. States that she has been wearing a compression garment for her primary lymphedema affecting her left lower extremity for quite a while now. Objective: General Observation: Seen sitting on bedside commode, Nurse Molly assisting. Swelling in L leg seen. MAYLIN stocking on L leg replaced with 20-30 mmHg compression legging to minimize increased swelling. CAROLINA wraps to R LE. Mental Status: Alert and oriented x 4 Pain: 3-4/10 pain in the L knee with weight bearing ROM: Right Upper Extremity: Shoulder Flexion WFL. Shoulder abduction WFL. Elbow flexion WFL. Wrist flexion WFL. Opening and closing of hand WFL. Left Upper Extremity: Shoulder Flexion WFL. Shoulder abduction WFL. Elbow flexion WFL. Wrist flexion WFL. Opening and closing of hand WFL. Right Lower Extremity: Hip flexion WFL. Hip abduction WFL. Knee flexion 10 degrees to 100 degrees. Knee extension -10 degrees. Ankle dorsiflexion WFL. Ankle plantarflexion WFL. Left Lower Extremity: Hip flexion WFL. Hip abduction WFL. Knee flexion WFL. Ankle dorsiflexion WFL. Ankle plantarflexion WFL. Strength: Right Upper Extremity: Shoulder flexors 4/5. Shoulder abductors 4/5. Elbow flexors 4/5. Elbow extensors 4/5. Head Of Sales strong. Left Upper Extremity: Shoulder flexors 4/5. Shoulder abductors 4/5. Elbow flexors 4/5. Elbow extensors 4/5. Head Of Sales strong. Right Lower Extremity: Hip flexors 4/5. Hip abductors 4/5. Knee flexors 3-/5. Knee extensors 3-/5. Ankle dorsiflexors 4-/5. Ankle plantarflexors 4-/5. Left Lower Extremity: Hip flexors 4-/5. Hip abductors 4-/5. Knee flexors 4-/5. Knee extensors 4-/5. Ankle dorsiflexors 4-/5. Ankle plantarflexors 4-/5. Sensation: Intact as to pain and pressure on bilateral lower extremities. Bed Mobility/Transfers: Sit to stand [facility] Bedside commode to bedside chair CGA Stand to sit [facility] Bed to chair CGA Gait: Instructed patient through level surface ambulation of 250 feet using a front wheeled walker with WBAT on the right LE requiring contact-guard assist with decreased skye, decreased knee extension and mid stance and decreased step height on the right observed. Patient reported pain level in both knees with the left more affected than the right at I cannot 4/10. Balance: Static Sitting: Normal Dynamic Sitting: Normal fair Static Standing: Dynamic Standing: Fair Special Tests: Mobility Limitations Standardized Measure [facility] 6 clicks Basic Mobility Inpatient Short Form: Raw Score: 19 CMS Score: 42% deficit Informed Consent/Education: Patient instructed in purpose of PT consult and plan of care. Assessment: Radha requires the use of a front wheeled walker and physical assistance of another caregiver in order to reduce fall risk and safely perform all mobility ADL performance at home. She will benefit from functional mobility retraining, strengthening, and balance scaling from a home health physical therapist and may progress to outpatient physical therapy services as appropriate when no longer homebound. She will also benefit from lymphedema management of the left LE for girth reduction and lymphedema garment reassessment. Patient presents with clinical signs and symptoms consistent with current/admitting diagnoses that have resulted to mobility limitations, gait instability, generalized weakness, and impairment of motor control as demonstrated by the following impairment level findings: 1. Decreased strength to B LE major muscle groups 2. Impaired standing balance 3. Impaired activity tolerance 4. Limitation of joint range of motion in right knee 5. Lymphedema in left leg Impairments are contributing to the following functional limitations: 1. Dependent bed mobility skills 2. Increased dependence with transfers 3. Inability to safely ambulate without assistive device and physical assistance 4. Increase completion time for mobility ADL performance 5. Increased fall risk 6. Inability to negotiate steps alone safely Patient is assessed as a complexity based on the following: History: 80 [id number] with impairment level findings, functional limitations, and past medical history as indicated above Examination: Demonstrable impairment in strength, balance, and mobility level with underlying impairments and functional limitations as documented above Presentation:Evolving Decision Makin moderate complexity Goals: Goals X1 week 1. Supine-Sit independent 2. Sit-Supine independent 3. Sit-Stand independent 4. Stand-Sit independent 5. Bed-Chair independent 6. Chair-Bed independent 7. Independent gait on level surface with use of least restrictive device for at least 300 feet without report of pain nor dyspnea 8. Independent stair negotiation while holding onto bilateral rails for at least 10 steps without report of pain nor dyspnea 9. Independent with home exercise program 10. Good static and dynamic standing balance/tolerance Plan of Care/Treatment Plan: 1-2x/day, 7 days/week x 1 week. Plan of care has been reviewed with the [facility] providing the service under Physical Therapy direction. Initiate Physical Therapy intervention for strengthening, bed mobility, transfers, gait, stairs, balance training, use of assistive device. DISCHARGE RECOMMENDATIONS: Home when medically cleared by orthopedic surgeon with needed help and support services provided. Patient will benefit from home health PT services in order to progress mobility level using least restrictive assistive ambulatory device, assess home safety, identify additional equipment needs, and establish a functional maintenance program that will increase ability of patient to remain at home. TREATMENT CODE/TIME: 41170 x 20 minutes, 9753 0 x 23 minutes beginning at 9:05 AM. Thank you for the opportunity to participate in the care of this patient. Kezia Mott PT, DPT, CLT [facility] [place], [place]
--- NOTE | 2020-11-07 11:28 | PDOC.CMIN ---
- If Service Date Differs Date of service: 11/07/20 Time of Service: 13:24 Care Management Initial Assess REASON FOR HOSPITALIZATION:: Loosening of prosthesis of right TKA PAST MEDICAL HISTORY/PAST SURGICAL HISTORY:: Arthritis, chronic back pain, bradycardia, cardiac myxoma, erthema nodosum, GERD, hypercholesterolemia, hyperlipidemia, Meniere's disease, permanent atrial fibrillation, pulmonary HTN, renal insufficiency, , EGD, hysterectomy, left knee replacement, right knee joint replacement, appendectomy, basal cell carcinoma excision, bilateral cataract extraction, cholecystectomy, colonoscopy, hammer toe correction, heart surgery, shoulder surgery PREVIOUS FUNCTIONAL STATUS/SOCIAL/FAMILY SUPPORTS:: Radha resides in [place], [place] with her , Rishabh. The couple have three children that reside outside of the area. She reports being independent at baseline in the community, and shares that they reside in a small home with two bathrooms within close proximity. CURRENT FUNCTIONAL STATUS:: Radha reports some increased pain this afternoon, though she reports not having experienced any pain prior to this point. She attributes the pain, to mobilizing more today. She is agreeable to [facility] support until able to follow up with Dr. Dawn and begin outpatient therapy. She shares no other concerns at this time and reports her and her continue to do well at home. ADVANCE DIRECTIVES:: None on file at [facility]. Has patient been provided with info about the portal/API?: Yes Did the patient sign up for the portal?: No CODE STATUS:: Full Code INSURANCE COVERAGE / FINANCIAL ISSUES:: JACQUELINE. GÉNESIS/BS CURRENT HOME/COMMUNITY SERVICES/EQUIPMENT:: Edward BROTHERS PRIMARY CARE PHYSICIAN:: Florence Quan POTENTIAL DISCHARGE NEEDS:: [facility] referral: [facility] PATIENT/FAMILY EDUCATION NEEDS:: Review of discharge instructions, discuss self care needs upon discharge; [facility]. ANTICIPATED BARRIERS TO DISCHARGE:: None identified. TRANSPORTATION:: Via private vehicle with her , Rishabh. PLAN:: Radha will return home when ready per MD. Anticipate new orders for [facility] PT; referral faxed to [facility]. Radha will follow up with orthopedics, her PCP and plan of care as prescribed. She will transport via private vehicle with her , Rishabh.
[2020-11-07] MEDS: Lactated Ringers 1,000 ML 1000 ML IV (12:32)
--- NOTE | 2020-11-07 13:25 | PDOC.CMDIS ---
LACE Index Scoring Tool - Questions: Length of Stay (in days): 1 Acuity (Admit via E.D.?): No E.D. Visits: 0 - Answers: Total Score: 1 Risk of Readmission: Low Risk Care Management Discharge Reason for Hospitalization: Loosening of prosthesis of right TKA Discharge Plan: orders faxed to [facility]. Radha will follow up with orthopedics, her PCP and plan of care as prescribed. She will transport via private vehicle with her , Rishabh. Patient/Family Education Needs: Review of discharge instructions, discuss self care needs upon discharge; [facility]. Services Needed at Discharge: Home Health Care Services ([place])
[2020-11-07] MEDS: Lactated Ringers 500 ML 1000 ML IV (13:59)
--- NOTE | 2020-11-11 11:17 | PT.INDS ---
Date of service: 11/11/20 PT Notes Visit Reasons: Loosening of prosthesis of right TKA Physical Therapy Inpatient Discharge Summary Date: 11/11/2020 Dates of Service: 11/07/2020 only This is a clinical summary of care provided on the duration of dates listed above. No charge was made in the completion of this documentation. Referring Doctor: BETZY Shelton PT Orders: PT CONSULT: Status post Ortho surgery Precautions: Fall. Standard. WBAT on right LE. 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 PMHX: Medicall History Arthritis Back Pain, Chronic Cardiac Myxoma Erythema nodosum hypercholesterolemia Meniere's disease Renal Insufficiency . Social History/Home Situation: Lives with Rishabh in a private home with 2 steps to enter with one rail. Uses 20-30 mmHg compression garment prior to surgery due to primary lymphedema affecting the left LE. Independent with mobility ADL performance prior onset of mobility limitations resulting from prosthetic loosening. Equipment Owned/DME: Front-wheeled walker Subjective: NT. See most recent SENIOR FUNCTIONAL ANALYST notes. Objective: General Observation: NT. See most recent SENIOR FUNCTIONAL ANALYST notes. Mental Status: NT. See most recent SENIOR FUNCTIONAL ANALYST notes. Pain: NT. See most recent SENIOR FUNCTIONAL ANALYST notes. ROM: Right Upper Extremity: Shoulder Flexion WFL. Shoulder abduction WFL. Elbow flexion WFL. Wrist flexion WFL. Opening and closing of hand WFL. Left Upper Extremity: Shoulder Flexion WFL. Shoulder abduction WFL. Elbow flexion WFL. Wrist flexion WFL. Opening and closing of hand WFL. Right Lower Extremity: Hip flexion WFL. Hip abduction WFL. Knee flexion 10 degrees to 100 degrees. Knee extension -10 degrees. Ankle dorsiflexion WFL. Ankle plantarflexion WFL. Left Lower Extremity: Hip flexion WFL. Hip abduction WFL. Knee flexion WFL. Ankle dorsiflexion WFL. Ankle plantarflexion WFL. Strength: Right Upper Extremity: Shoulder flexors 4/5. Shoulder abductors 4/5. Elbow flexors 4/5. Elbow extensors 4/5. Refining Engineer strong. Left Upper Extremity: Shoulder flexors 4/5. Shoulder abductors 4/5. Elbow flexors 4/5. Elbow extensors 4/5. Refining Engineer strong. Right Lower Extremity: Hip flexors 4/5. Hip abductors 4/5. Knee flexors 3-/5. Knee extensors 3-/5. Ankle dorsiflexors 4-/5. Ankle plantarflexors 4-/5. Left Lower Extremity: Hip flexors 4-/5. Hip abductors 4-/5. Knee flexors 4-/5. Knee extensors 4-/5. Ankle dorsiflexors 4-/5. Ankle plantarflexors 4-/5. Sensation: Intact as to pain and pressure on bilateral lower extremities. Bed Mobility/Transfers: Sit to stand supervision Stand to sit supervision Bed to chair supervision Gait: Instructed patient through level surface ambulation of 250 feet using a front wheeled walker with WBAT on the right LE requiring contact-guard assist with decreased skye, decreased knee extension and mid stance and decreased step height on the right observed. Patient reported pain level in both knees with the left more affected than the right at 4/10. Up-and-down three 4 inch steps and two 6 inch steps while holding onto 1 rail and with use of single-point cane with another hand using step to pattern requiring supervision. Balance: Static Sitting: Normal Dynamic Sitting: Normal Static Standing: Fair Dynamic Standing: Fair Assessment: Radha continues to require the use of a front wheeled walker and physical assistance of another caregiver in order to reduce fall risk and safely perform all mobility ADL performance at home. She will benefit from functional mobility retraining, strengthening, and balance sskilling from a home health physical therapist and may progress to outpatient physical therapy services as appropriate when no longer homebound. She will also benefit from lymphedema management of the left LE for girth reduction and lymphedema garment reassessment. Patient continues to present with clinical signs and symptoms consistent with current/admitting diagnoses that have resulted to mobility limitations, gait instability, generalized weakness, and impairment of motor control as demonstrated by the following impairment level findings: 1. Decreased strength to B LE major muscle groups 2. Impaired standing balance 3. Impaired activity tolerance 4. Limitation of joint range of motion in right knee 5. Lymphedema in left leg Impairments are continuing to contribute to the following functional limitations: 1. Increased dependence with transfers 2. Inability to safely ambulate without assistive device and physical assistance 3. Increase completion time for mobility ADL performance 4. Increased fall risk 5. Inability to negotiate steps alone safely Goals: Goals X1 week 1. Supine-Sit independent NOT MET 2. Sit-Supine independent NOT MET 3. Sit-Stand independent MET 4. Stand-Sit independent MET 5. Bed-Chair independent NOT MET 6. Chair-Bed independent NOT MET 7. Independent gait on level surface with use of least restrictive device for at least 300 feet without report of pain nor dyspnea NOT MET 8. Independent stair negotiation while holding onto bilateral rails for at least 10 steps without report of pain nor dyspnea NOT MET 9. Independent with home exercise program NOT MET 10. Good static and dynamic standing balance/tolerance NOT MET DISCHARGE RECOMMENDATIONS: Home when medically cleared by orthopedic surgeon with needed help and support services provided. Patient will benefit from home health PT services in order to progress mobility level using least restrictive assistive ambulatory device, assess home safety, identify additional equipment needs, and establish a functional maintenance program that will increase ability of patient to remain at home. TREATMENT CODE/TIME: [place] Thank you for the opportunity to participate in the care of this patient. Kezia Mott PT, DPT, CLT [facility] [place], [place]
== END 2020-11-07 17:03 | disposition home or self-care (01) | DRG 489 ==
LOC: PDS 09:26 → MS 16:45
PROVIDERS: Nurse Anesthetist, Certified Registered; Physician Assistant; Admitting Provider Student in an Organized Health Care Education/Training Program; PCP Nurse Practitioner Family; Visit Provider Student in an Organized Health Care Education/Training Program
PROC: 0SPC09Z Removal of Liner from Right Knee Joint, Open Approach (ICD-10-PCS; CPT 27487; principal; 2020-11-06 10:30)
DX: T84.032A Mechanical loosening of internal right knee prosthetic joint, initial encounter (principal); T84.84XA Pain due to internal orthopedic prosthetic devices, implants and grafts, initial encounter; Z96.651 Presence of right artificial knee joint; G89.18 Other acute postprocedural pain; M12.261 Villonodular synovitis (pigmented), right knee; M65.88 Other synovitis and tenosynovitis, other site; M85.461 Solitary bone cyst, right tibia and fibula
CPT/HCPCS: 27486; 27637; 36415; 76942; 80048; 85027; 97110; 97162; 97530; NC; 73560; 85610; J0690; J1100; J1650; J1885; J2001; J2370; J2405; J2704; J3010

== ENCOUNTER 2020-11-21 12:46 | Outpatient (CLI) | payer MEDICARE, BC, SELFPAY ==
--- NOTE | 2020-11-21 12:00 | DI.RAD_ITS ---
EXAM: XR STANDING ALIGNMENT CLINICAL HISTORY: revision R TKA TECHNIQUE: COMPARISON: No exams were available for comparison FINDINGS: Standing alignment views were obtained. There are bilateral total knee joint prostheses in position. IMPRESSION: RADIATION DOSE DELIVERED: Total DLP
--- NOTE | 2020-11-21 12:00 | DI.RAD_ITS ---
EXAM: XR KNEE RT 1V CLINICAL HISTORY: revision R TKA TECHNIQUE: COMPARISON: CR XR KNEE RT 2V AP,LAT from 11/06/2020 FINDINGS: Lateral view of the right knee was obtained and shows total knee joint replacement in position. The components appear well seated. IMPRESSION: RADIATION DOSE DELIVERED: Total DLP
== END 2020-11-21 13:06 ==
PROVIDERS: PCP Nurse Practitioner Family; Referring Provider Nurse Practitioner Family; Visit Provider Physician Assistant
DX: Z96.651 Presence of right artificial knee joint (principal); Z47.1 Aftercare following joint replacement surgery
CPT/HCPCS: 73560; 77073

== ENCOUNTER → 2020-12-23 13:26 | Outpatient (BNVA) | payer MEDICARE, BC, SELFPAY | PROVIDERS: PCP Nurse Practitioner Family; Visit Provider Student in an Organized Health Care Education/Training Program | DX: Z47.1 Aftercare following joint replacement surgery (principal); Z96.651 Presence of right artificial knee joint ==

== ENCOUNTER 2021-06-26 12:18 | Outpatient (CLI) | payer MEDICARE, BC, SELFPAY ==
--- NOTE | 2021-06-26 10:30 | DI.RAD_ITS ---
Exam(s) XR KNEE RT 2V AP,LAT EXAM: XR KNEE RT 2V AP,LAT CLINICAL HISTORY: right knee pain. TECHNIQUE: 2D digital imaging was performed. COMPARISON: CR XR KNEE RT 1V from 11/21/2020 FINDINGS: Stable position alignment of bones of prosthesis. No fracture or loosening evident although please n ote that the inferior aspect tibial stem is not included in the field of view. IMPRESSION: DATA REPOSITORY: RADIATION DOSE DELIVERED:
--- NOTE | 2021-06-26 10:30 | DI.RAD_ITS ---
Exam(s) XR TIB/FIB RT EXAM: XR TIB/FIB RT CLINICAL HISTORY: R tibia pain. TECHNIQUE: 2D digital imaging was performed. COMPARISON: CR XR STANDING ALIGNMENT from 11/21/2020 CR XR KNEE RT 1V from 11/21/2020 CR XR KNEE RT 1V from 11/21/2020 CR XR KNEE RT 2V AP,LAT from 06/26/2021 CR XR KNEE RT 2V AP,LAT from 06/26/2021 FINDINGS: Position alignment of components of the right knee prosthesis remain stable. No fracture or loosenin g evident IMPRESSION: DATA REPOSITORY: RADIATION DOSE DELIVERED:
== END 2021-06-26 12:19 | disposition home or self-care (01) ==
LOC: DIORS 12:18
PROVIDERS: PCP Nurse Practitioner Family; Referring Provider Nurse Practitioner Family; Visit Provider Student in an Organized Health Care Education/Training Program
DX: Z96.651 Presence of right artificial knee joint (principal); M79.604 Pain in right leg; Z47.1 Aftercare following joint replacement surgery; T84.84XD Pain due to internal orthopedic prosthetic devices, implants and grafts, subsequent encounter; M25.561 Pain in right knee
CPT/HCPCS: 99213; 73560; 73590

== ENCOUNTER → 2021-09-18 10:23 | Outpatient (BNVA) | payer MEDICARE, BC, SELFPAY | PROVIDERS: PCP Nurse Practitioner Family; Referring Provider Nurse Practitioner Family; Visit Provider Student in an Organized Health Care Education/Training Program | DX: M79.604 Pain in right leg (principal); Z96.651 Presence of right artificial knee joint; I80.8 Phlebitis and thrombophlebitis of other sites | CPT/HCPCS: 99213 ==

== ENCOUNTER 2022-02-23 14:39 | Outpatient (CLI) | payer MEDICARE, BC, SELFPAY ==
--- NOTE | 2022-02-23 14:30 | DI.RAD_ITS ---
Exam(s) XR SHOULDER RT COMPLETE 2+V EXAM: XR SHOULDER RT COMPLETE 2+V CLINICAL HISTORY: right shoulder pain. TECHNIQUE: 2D digital imaging was performed. Three views. COMPARISON: CR RIGHT SHOULDER COMPLETE from 12/02/2016 MR MRI R UPPER JOINT WO CONT from 01/29/2017 CR RIGHT SHOULDER 1 VIEW from 03/11/2017 FINDINGS: BONES: No acute fracture is present. No bony destructive lesion is seen. Prior rotator repair with multiple anchors in the humeral head. Prior resection of the distal clavic le. JOINTS: No dislocation present. Humeral head high riding, sub superiorly subluxed consistent with ch ronic rotator cuff tear. Narrowing of glenohumeral joint space. SOFT TISSUE: Normal. IMPRESSION: Degenerative and postsurgical changes. DATA REPOSITORY: RADIATION DOSE DELIVERED:
== END 2022-02-23 14:40 | disposition home or self-care (01) ==
LOC: DIORS 14:39
PROVIDERS: PCP Nurse Practitioner Family; Referring Provider Nurse Practitioner Family; Visit Provider Student in an Organized Health Care Education/Training Program
DX: M75.101 Unspecified rotator cuff tear or rupture of right shoulder, not specified as traumatic; M12.811 Other specific arthropathies, not elsewhere classified, right shoulder
CPT/HCPCS: 20610; 73030; J1040

== ENCOUNTER 2024-04-14 09:51 | Outpatient (CLI) | payer MEDICARE, BC, SELFPAY ==
--- NOTE | 2024-04-14 09:45 | DI.RAD_ITS ---
Exam(s) XR KNEE RT 3V AP,LAT,KIERA EXAM: XR KNEE RT 3V AP,LAT,KIERA CLINICAL HISTORY: F/U R TKA. TECHNIQUE: 2D digital imaging was performed. Four images were obtained. AP, lateral and merchant's views were obtained. COMPARISON: CR XR KNEE RT 1V from 11/21/2020 CR XR KNEE RT 2V AP,LAT from 06/26/2021 CR XR TIB/FIB RT from 06/26/2021 FINDINGS: BONES: There are findings of a right total knee replacement. There is lateral tilt of the patella. There osseous fragment seen superior and lateral to the patella which appear chronic. The femoral an d tibial components appear stable. No fracture or dislocation. JOINTS: There is no joint effusion. SOFT TISSUE: Vascular calcifications are present. IMPRESSION: Lateral tilt of the patella. This may reflect injury to the retinaculum. MRI may be considered for further evaluation. The femoral and tibial components appears stable. DATA REPOSITORY: RADIATION DOSE DELIVERED:
== END 2024-04-14 09:52 | disposition home or self-care (01) ==
LOC: DIORS 10:05
PROVIDERS: PCP Family Medicine; Referring Provider Family Medicine
DX: Z96.651 Presence of right artificial knee joint (principal); L03.115 Cellulitis of right lower limb
CPT/HCPCS: 73562; 99213

== ENCOUNTER 2024-11-28 15:29 | Outpatient (CLI) | payer MEDICARE, BC, SELFPAY ==
--- NOTE | 2024-11-28 14:00 | DI.RAD_ITS ---
Exam(s) XR SHOULDER RT COMPLETE 2+V EXAM: XR SHOULDER RT COMPLETE 2+V CLINICAL HISTORY: RIGHT SHOULDER PAIN. TECHNIQUE: 2D digital imaging was performed. COMPARISON: CR XR SHOULDER RT COMPLETE 2+V from 02/23/2022 FINDINGS: Two views Again noted is evidence of previous rotator cuff surgery with multiple fastener devices again noted i n the lateral aspect of humeral head. There is also surgical widening of the AC joint again noted. Os acromial again noted. No evidence of acute fracture. Advanced degenerative changes in the glenohumeral joint are again not ed and there is again noted superior subluxation of the humeral head in the glenoid fossa and signifi cant diminution of the subacromial space, these findings consistent with chronic rotator cuff tear. Sternotomy wires also again noted. IMPRESSION: Previous rotator cuff surgery. Advanced degenerative changes in the glenohumeral joint again noted. Upward subluxation of the humeral head and diminished subacromial space, consistent with chronic full -thickness rotator cuff tendon tear. DATA REPOSITORY: RADIATION DOSE DELIVERED:
== END 2024-11-28 15:30 | disposition home or self-care (01) ==
LOC: DIORS 15:29
PROVIDERS: Visit Provider Student in an Organized Health Care Education/Training Program
DX: M75.101 Unspecified rotator cuff tear or rupture of right shoulder, not specified as traumatic (principal); M12.811 Other specific arthropathies, not elsewhere classified, right shoulder
CPT/HCPCS: 20610; 99214; J1010; 73030

== ENCOUNTER → 2025-05-09 09:27 | Outpatient (BNVA) | payer MEDICARE, BC, SELFPAY | PROVIDERS: Visit Provider Student in an Organized Health Care Education/Training Program | DX: M75.101 Unspecified rotator cuff tear or rupture of right shoulder, not specified as traumatic (principal); M12.811 Other specific arthropathies, not elsewhere classified, right shoulder; Z79.01 Long term (current) use of anticoagulants; Z95.0 Presence of cardiac pacemaker | CPT/HCPCS: 99214 ==

== ENCOUNTER 2025-06-11 01:25 | Outpatient (CLI) | payer MEDICARE, BC, SELFPAY ==
--- NOTE | 2025-06-11 07:00 | DI.CT_ITS ---
Exam(s) CT UPPER EXTREMITY RT WO EXAM: CT UPPER EXTREMITY RT WO CLINICAL HISTORY: SURGICAL PLANNING,rt rotator cuff arthropathy,m75.101,m12.811. TECHNIQUE: Imaging Protocol: Axial computed tomography images with coronal and sagittal reformatted images were created and reviewed. COMPARISON: CR XR SHOULDER RT COMPLETE 2+V from 11/28/2024 FINDINGS: The examination is limited due to patient motion artifact. Bones: The osseous structures and articular surfaces are intact. There are postsurgical changes seen in the humeral head which may reflect prior rotator cuff repair. There appears to be resection of a portion of the distal clavicle. There is marked narrowing of the acromial humeral interval which can be seen with a chronic rotator cuff tear. There is marked osteoarthritis at the glenohumeral joint characterized by joint space narrowing and osteophytes. Subchondral sclerosis and subchondral cysts are also noted. No lytic or sclerotic lesions are identified. Soft Tissues: Normal. IMPRESSION: Marked osteoarthritis of the right shoulder scribe above. RADIATION DOSE DELIVERED: 94.17mGy.cm Total DLP 94.17mGy.cm Total DLP DATA REPOSITORY: All CT scans at this facility are submitted to the National Radiology Data Registry (NRDR) Dose Index Registry (DIR) with the [employer] ([employer]). RADIATION OPTIMIZATION: All CT scans at this facility use at least one of these dose optimization techniques: automated exposure control; mA and/or kV adjustment per patient size (includes targeted exams where dose is matched to clinical indication); or iterative reconstruction.
== END 2025-06-11 01:45 ==
PROVIDERS: PCP Specialist/Technologist Athletic Trainer; Visit Provider Student in an Organized Health Care Education/Training Program
DX: M12.811 Other specific arthropathies, not elsewhere classified, right shoulder (principal)
CPT/HCPCS: 73200

== ENCOUNTER → 2025-06-26 09:56 | Outpatient (BNVA) | payer MEDICARE, BC, SELFPAY | PROVIDERS: PCP Specialist/Technologist Athletic Trainer; Referring Provider Specialist/Technologist Athletic Trainer; Visit Provider Student in an Organized Health Care Education/Training Program | DX: M75.101 Unspecified rotator cuff tear or rupture of right shoulder, not specified as traumatic (principal); M12.811 Other specific arthropathies, not elsewhere classified, right shoulder; Z96.9 Presence of functional implant, unspecified; Z79.01 Long term (current) use of anticoagulants | CPT/HCPCS: 99215 ==